=== PATIENT | male | born 1995 | race Two or more races ===

== ENCOUNTER 2018-07-03 00:12 | Emergency (ER) | payer OTHER ==
[~2018-07-03] VITALS: Ht 165.1 cm; Wt 70.3 kg
[2018-07-03 00:21] VITALS: BP 131/92
[2018-07-03] MEDS ORDERED: HYDROCODONE/APAP 5/325MG 1 EACH TABLET PO ONE (01:00)
[2018-07-03] MEDS ORDERED: CYCLOBENZAPRINE 10 MG TABLET PO ONE (01:00)
[2018-07-03] MEDS ORDERED: HYDROCODONE/APAP 5/325MG 1 EACH TABLET ONE (01:13)
[2018-07-03] MEDS ORDERED: CYCLOBENZAPRINE 10 MG TABLET ONE (01:13)
== END 2018-07-03 01:21 | disposition home or self-care (01) ==
LOC: ER 00:12
DX: M62.838 Other muscle spasm (principal)